=== PATIENT | female | born 1945 | race Caucasian/White ===

== ENCOUNTER → 2018-07-10 | Outpatient (CLI) | payer MEDICARE | END | disposition home or self-care (01) | LOC: PCVCCLINIC 11:49 | PROVIDERS: ATTEND Internal Medicine Cardiovascular Disease | DX: R07.9 Chest pain, unspecified (principal); R06.02 Shortness of breath; R00.2 Palpitations; I10 Essential (primary) hypertension; R93.1 Abnormal findings on diagnostic imaging of heart and coronary circulation; K21.9 Gastro-esophageal reflux disease without esophagitis; F17.210 Nicotine dependence, cigarettes, uncomplicated | CPT/HCPCS: 36415; 80061; 93005; G0463 ==

== ENCOUNTER → 2018-07-23 | Outpatient (CLI) | payer MEDICARE ==
[~2018-07-23] MED LIST: REGADENOSON 0.4 MG/5 ML DISP.SYRIN. IV ONE
--- NOTE | 2018-07-24 15:15 | PCVCIMAG ---
APPROVED REPORT Study performed: 07/23/2018 08:22:32 EXAM: Comprehensive 2D, Doppler, and color-flow Echocardiogram Patient Location: Echo lab Status: routine BSA: 1.63 HR: 73 bpmBP: 140/80 mmHg Rhythm: NSR Other Information Study Quality: Good Risk Factors: Cardiac Risk Factors: HTN Indications Dyspnea Palpitations Chest Pain Elevated calcium score 2D Dimensions IVSd: 9.04 (7-11mm)LVOT Diam: 16.02 (18-24mm) LVDd: 32.65 mm PWd: 9.24 (7-11mm)Ascending Ao: 34.18 (22-36mm) LVDs: 22.77 (25-40mm) Left Atrium: 36.36 (27-40mm) Aortic Root: 26.68 mm LV Single Plane 4CH: 55.22 % LV Single Plane 2CH: 62.72 % Biplane EF: 60.3 % Volumes Left Atrial Volume (Systole) Single Plane 4CH: 28.93 mLSingle Plane 2CH: 41.85 mL LA ESV Index: 22.00 mL/m2 Aortic Valve AoV Peak Juliocesar.: 1.31 m/s AO Peak Gr.: 6.85 mmHgLVOT Max P.53 mmHg LVOT Max V: 0.94 m/s MATT Vmax: 1.44 cm2 AI Vmax: 3.34 m/s AI [place]: 1.00 m/s2 AI PHT: 972.01 ms Mitral Valve E/A Ratio: 0.8 MV Decel. Time: 203.67 ms MV E Max Juliocesar.: 0.82 m/s MV A Juliocesar.: 0.97 m/s IVRT: 117.65 ms TDI E/Lateral E': 10.25E/Medial E': 13.67 Medial E' Juliocesar.: 0.06 m/s Lateral E' Juliocesar.: 0.08 m/s Pulmonary Vein P Vein S: 0.51 m/sP Vein A: 0.34 m/s P Vein D: 0.34 m/sP Vein A Dur.: 69.2 msec P Vein S/D Ratio: 1.50 Tricuspid Valve TR Peak Juliocesar.: 2.36 m/s TR Peak Gr.: 22.22 mmHg Left Ventricle The left ventricle is normal size. There is normal LV segmental wall motion. There is normal left ventricular wall thickness. Left ventricular systolic function is normal. The left ventricular ejection fraction is within the normal range. LVEF is 60-65%. The left ventricular diastolic function is normal. Right Ventricle The right ventricle is normal size. The right ventricular systolic function is normal. Atria The left atrium size is normal. The right atrium size is normal. Aortic Valve The aortic valve is normal in structure. Trace aortic regurgitation. There is no aortic valvular stenosis. Mitral Valve The mitral valve is normal in structure. Trace mitral regurgitation. No evidence of mitral valve stenosis. Tricuspid Valve The tricuspid valve is normal in structure. Trace tricuspid regurgitation. Pulmonary artery pressure is 30mmHg. Pulmonic Valve The pulmonary valve is normal in structure. There is no pulmonic valvular regurgitation. Great Vessels The aortic root is normal in size. IVC is normal in size and collapses >50% with inspiration. Pericardium There is no pericardial effusion. <Conclusion> The left ventricle is normal size. LVEF is 60-65%. The left ventricular diastolic function is normal. The right ventricle is normal size. The left atrium size is normal. The aortic valve is normal in structure. Trace mitral regurgitation. Trace tricuspid regurgitation. Pulmonary artery pressure is 30mmHg. The aortic root is normal in size. There is no pericardial effusion.
--- NOTE | 2018-07-25 17:21 | PCVCIMAG ---
APPROVED REPORT Imaging Protocol: Rest Tc-99m/Stress Tc-99m 1 day Study performed: 07/23/2018 08:58:25 Indication: Abnormal EKG, Chest pain, CAD, High Ca Score Patient Location: Out-Patient Stress Nurse: Fariha Thomas RN, Xiomara Stewart RN [place] Tech:REJI Alvarez Ht: 4 ft 9 in Wt: 155 lbs BSA: 1.61 m2 HR: 68 bpm BP: 178/77 mmHg BMI: 33.5 Rhythm: Sinus Rhythm Medical History Medical History: HTN, Hyperlipidemia, Current Smoker Medications: ASA, Bystolic, Inderal Allergies: PCN, Hydroxychloroquine Cardiac Risk Factors: Age Pretest Chest Pain Characteristics: No chest pain Exercise History: Physically active Meds Held (24 hrs): pt held all meds this am Resting Data Rest SPECT myocardial perfusion imaging was performed in supine position 45 minutes following the intravenous injection of 10.7 mCi of Tc-99m Sestamibi. Time of rest injection: 0915 Administration Route: IV Administration Site: Right AC Pharmacologic Stress Pharmacologic stress test was performed by injecting Regadenoson 0.4 mg IV push over 10-15 seconds immediately followed by the intravenous injection of 33.8 mCi of Tc-99m Sestamibi. Time of stress injection: 1100 Administration Route: IV Administration Site: Right AC Gated Stress SPECT was performed 45 minutes after stress injection. The images were gated to evaluate regional wall motion and calculate left ventricular ejection fraction. Stress Test Details Stress Test: Pharmacologic stress testing performed using 0.4 mg of regadenoson per 5 mL given IV over 10 seconds. Reason for pharmacologic stress test: back pain. HRMax Heart Rate (APMHR): 146 bpm Resting HR: 68 bpmTarget HR (85% APMHR): 124 bpm Max HR Achieved: 102 bpm % of APMHR: 69 Recovery HR: 97 bpm BP Resting BP: 178/77 mmHg Max BP: 153/90 mmHg Recovery BP: 160/72 mmHg ECG Resting ECG: Sinus Rhythm Stress ECG: Sinus Tachycardia Recovery ECG: Sinus Rhythm Clinical Reason for Termination: Completed protocol Stress Symptoms: Chest pain, Headache, Jaw pain Exercise duration: 0 min 55 sec Symptoms resolved with caffeine. Stress ECG Conclusion ECG: Non-ischemic Study Quality Study: Good Study Data Post stress, the left ventricular ejection was 75%.. SSS: 0 SRS: 0 SDS: 0 TID = 1.15. Perfusion No evidence of stress induced ischemia or prior myocardial infarction. Wall Motion Normal left ventricular size and function with no regional wall motion abnormalities. Nuclear Conclusion No evidence of stress induced ischemia or prior myocardial infarction. Normal left ventricular size and function with no regional wall motion abnormalities. Post stress, the left ventricular ejection was 75%. No prior study available for comparison. Interpreted by: Stefano Borja MD Electronically Approved: 07/23/2018 14:27:53 <Conclusion> ECG: Non-ischemic
== END | disposition home or self-care (01) ==
LOC: PCVCIMAG 08:26
PROVIDERS: ATTEND Internal Medicine Cardiovascular Disease
DX: I25.10 Atherosclerotic heart disease of native coronary artery without angina pectoris (principal); R07.9 Chest pain, unspecified; R00.2 Palpitations; R93.1 Abnormal findings on diagnostic imaging of heart and coronary circulation; E78.5 Hyperlipidemia, unspecified; Z87.891 Personal history of nicotine dependence
CPT/HCPCS: 78452; 93017; 93306; A9500; J2785

== ENCOUNTER → 2018-10-18 | Outpatient (CLI) | payer MEDICARE | END | disposition home or self-care (01) | LOC: PCVCCLINIC 11:30 | PROVIDERS: ATTEND Internal Medicine Cardiovascular Disease | DX: I10 Essential (primary) hypertension (principal); E78.00 Pure hypercholesterolemia, unspecified; R93.1 Abnormal findings on diagnostic imaging of heart and coronary circulation; K21.9 Gastro-esophageal reflux disease without esophagitis; F17.200 Nicotine dependence, unspecified, uncomplicated; Z88.0 Allergy status to penicillin; Z79.82 Long term (current) use of aspirin; Z79.899 Other long term (current) drug therapy; Z88.8 Allergy status to other drugs, medicaments and biological substances | CPT/HCPCS: 93005; G0463 ==